=== PATIENT | male | born 1970 | race Caucasian/White ===

== ENCOUNTER 2020-09-17 02:01 | Emergency (ER) | payer OTHER ==
[~2020-09-17 02:01] MED LIST: ATIVAN1 MG PO; CELEXA10 MG PO; COZAAR100 MG PO; DAILY MULTIPLE1 EAC1 PO; NORCO 5-325 TA1 EACH PO; VITAMIN D-32000 UNI1 PO; ZOFRAN4 MG PO
[2020-09-17 02:28] LABS: BASOPHIL 0.9 % (0-2); EOSINOPHIL 2.3 % (0-5); HCT 50.8 % (42.0-52.0); HGB 16.8 g/dl (13.2-18.0); MCH 31.6 pg (25.0-31.0); MCHC 33.1 g/dL (32.0-36.0); MCV 95.5 fL (78.0-100.0); MONOCYTE 7.5 % (0-12); MPV 10.3 fL (6.0-9.5); NRBC 0; PLT 224 K/uL (150-400); RBC 5.32 M/uL (4.70-6.00); WBC 9.9 K/uL (4.0-10.5)
[2020-09-17 02:32] LABS: INR 1.02 (0.9-1.2); PROTHROMBIN TIME 12.7 SECONDS (11.4-13.6)
[2020-09-17 02:33] LABS: PTT 35.4 SECONDS (22.2-34.7)
[2020-09-17 02:40] LABS: ALBUMIN 3.6 g/dL (3.4-5.0); BILIRUBIN - TOTAL 0.3 mg/dL (0.2-1.0); BUN/CREAT RATIO (CALC) 12.5 RATIO; CREATININE 1.12 mg/dL (0.67-1.17); GLOBULIN (CALCULATION) 3.6 g/dL; POTASSIUM 3.8 mmol/L (3.5-5.1); TOTAL PROTEIN 7.2 g/dL (6.4-8.2)
== END 2020-09-17 04:45 | disposition home or self-care (01) ==
LOC: FER 02:01
PROVIDERS: Emergency Medicine
DX: R07.89 Other chest pain (principal); R20.2 Paresthesia of skin; I10 Essential (primary) hypertension; F17.210 Nicotine dependence, cigarettes, uncomplicated; Z88.1 Allergy status to other antibiotic agents; Z79.899 Other long term (current) drug therapy
CPT/HCPCS: 36415; 70450; 71045; 80053; 84484; 85025; 85610; 85730; 93005

== ENCOUNTER → 2021-10-24 | Day surgery (SDC) | payer OTHER ==
[~2021-10-24] VITALS: Ht 180.3 cm; Wt 90.7 kg
[~2021-10-24] MED LIST changes: +AMBIEN10 MG PO; +HCTZ12.5 MG PO; +TYLENOL #3 6-P1 EACH PO
[2021-10-24 10:14] LABS: HCT 55.9 % (42.0-52.0); HGB 18.2 g/dl (13.2-18.0); MCH 31.1 pg (25.0-31.0); MCHC 32.6 g/dL (32.0-36.0); MCV 95.4 fL (78.0-100.0); MPV 10.4 fL (6.0-9.5); RBC 5.86 M/uL (4.70-6.00); RDW 13.2 % (11.5-14.0); WBC 12.3 K/uL (4.0-10.5)
== END | disposition home or self-care (01) ==
LOC: FAS 08:56
PROVIDERS: Surgery
DX: D12.0 Benign neoplasm of cecum (principal); K29.80 Duodenitis without bleeding; K29.50 Unspecified chronic gastritis without bleeding; K31.9 Disease of stomach and duodenum, unspecified; K21.00 Gastro-esophageal reflux disease with esophagitis, without bleeding; I10 Essential (primary) hypertension; F41.9 Anxiety disorder, unspecified; F32.A Depression, unspecified; Z86.010 Personal history of colon polyps; F17.210 Nicotine dependence, cigarettes, uncomplicated; Z98.890 Other specified postprocedural states; Z88.1 Allergy status to other antibiotic agents; Z88.8 Allergy status to other drugs, medicaments and biological substances; Z79.899 Other long term (current) drug therapy
CPT/HCPCS: 36415; J1610; J2250; J2704; J7120